=== PATIENT | female | born 1975 | race Hispanic/Latino ===

== ENCOUNTER 2024-01-04 06:25 | Day surgery (SDC) | payer MEDICAID ==
[2024-01-04] VITALS (10 sets, daily range): BP systolic 154–181; BP diastolic 78–105; PULSE 62–79; RESP 14–18
[~2024-01-04] VITALS: Ht 157.5 cm; Wt 68.0 kg
[2024-01-04] MEDS ORDERED: BIOT1CAP3 PO (06:58)
[2024-01-04] MEDS ORDERED: LOSA25TA41 PO (06:58)
[2024-01-04] MEDS ORDERED: MULT-1192 PO (06:58)
[2024-01-04] MEDS: SODIUM TETRADECYL SULFATE 30 MG/ML 2 ML VIAL IV ONE (07:00)
[2024-01-04] MEDS: 0.9%NACL 1000ML 1,000 ML IV ONE (07:01)
[2024-01-04] MEDS ORDERED: LIDOCAINE PF 100MG/5ML (2%) SYRINGE 5ML ONE (10:07)
[2024-01-04] MEDS ORDERED: PROPOFOL 10 MG/ML 20ML VIAL IV ONE (10:07)
[2024-01-04] MEDS: HYDRALAZINE 20MG/ML VIAL ONE (10:50)
== END 2024-01-04 11:18 | disposition home or self-care (01) ==
LOC: DAH 06:25 → ENDO 06:25
PROVIDERS: ATTEND Surgery
DX: R13.10 Dysphagia, unspecified (principal); K21.9 Gastro-esophageal reflux disease without esophagitis; I10 Essential (primary) hypertension; E10.9 Type 1 diabetes mellitus without complications; Z98.84 Bariatric surgery status; Z79.84 Long term (current) use of oral hypoglycemic drugs; Z79.899 Other long term (current) drug therapy
CPT/HCPCS: 43236; 81025; J7030; J3490 ×3; J0360; A4620; A4215 ×2; A4223; A4222; A4221; A4663; A4606; J2001; J2704